=== PATIENT | male | born 1970 | race Caucasian/White ===

== ENCOUNTER 2023-08-21 11:16 | Outpatient (CLI) | payer OTHER | END 2023-08-21 11:17 | disposition critical access hospital (66) | LOC: EMS 11:16 | DX: M79.661 Pain in right lower leg (principal); S89.91XA Unspecified injury of right lower leg, initial encounter; Y93.69 Activity, other involving other sports and athletics played as a team or group; Y92.318 Other athletic court as the place of occurrence of the external cause; R55 Syncope and collapse; I95.9 Hypotension, unspecified | CPT/HCPCS: A0425; A0427 ==

== ENCOUNTER 2023-08-21 11:42 | Emergency (ER) | payer OTHER ==
--- NOTE | 2023-08-21 11:55 | ED Physician Documentation ---
PD HPI SYNCOPE - Stated complaint Stated Complaint: SYNCOPE - History obtained from History obtained from: Patient, EMS - History of Present Illness Witnessed: Witnessed Timing - onset: How many hours ago (1) Duration: Seconds Preceding symptoms: Light headed, Other (severe calf pain. He was playing pickleball and had an abrupt pain in mid calf, worse with putting weight onto leg. He felt abruptly lightheaded and then "fainted" for few seconds as he was about to sit down. No fall nor injury. Remained pale sitting. EMS called and initial BP was low at 80-90 syst.) Associated symptoms: No: Headache, Chest pain, Palpitations Contributing factors: Noxious stimulae. No: Decreased PO intake Injury occurred: No: Fell, Head injury, Neck injury Similar symptoms before: Has not had sx before Review of Systems Constitutional: denies: Fever, Chills GI: reports: Nausea. denies: Vomiting, Diarrhea Neurologic: denies: Focal weakness, Numbness PD PAST MEDICAL HISTORY - Past Medical History Cardiovascular: None Respiratory: None Neuro: None Endocrine/Autoimmune: None - Present Medications Home Medications: Ambulatory Orders Medication Instructions Recorded Confirmed Rosuvastatin Calcium 20 mg PO DAILY 08/21/23 08/21/23 - Allergies Allergies/Adverse Reactions: Allergies Allergy/AdvReac Type Severity Reaction Status Date / Time No Known Drug Allergies Allergy Verified 08/21/23 12:02 PD ED PE NORMAL - Vitals Vital signs reviewed: Yes - General General: Alert and oriented X 3, No acute distress, Well developed/nourished - Neck Neck: Supple, no meningeal sign, No adenopathy - Cardiac Cardiac: RRR, No murmur - Respiratory Respiratory: Clear bilaterally - Abdomen Abdomen: Soft, Non tender - Derm Derm: Normal color, Warm and dry - Extremities Extremities: Other (right calf medial mid- gastroc area with local tenderness and soft area c/w partly torn muscle bundle. Lower calf nd Achilles firm and not tender. Able to plantqrflex the ankle though hurts in calf. ) - Neuro Neuro: Alert and oriented X 3, No motor deficit, No sensory deficit, Normal speech Results - Vitals Vitals: Oxygen O2 Source Room air - EKG (time done) 12:33 EKG releavant findings:: EKG personally interpreted by author of this note. Relevant findings are: Rate: Rate (enter#) (65) Rhythm: NSR [place]: Normal Intervals: Normal VA QRS: Normal Ischemia: Normal ST segments. No: ST elevation c/w ischemia, ST depression - Labs Labs: Laboratory Tests 08/21/23 08/21/23 08/21/23 12:08 12:08 12:08 WBC 4.9 RBC 4.22 L Hgb 13.0 L Hct 38.8 L MCV 91.9 MCH 30.8 MCHC 33.5 RDW 11.3 L Plt Count 173 MPV 10.3 Neut # (Auto) 3.2 Lymph # (Auto) 1.1 L Dillon # (Auto) 0.5 Eos # (Auto) 0.1 Baso # (Auto) 0.0 Absolute Nucleated RBC 0.00 Nucleated RBC % 0.0 Sodium 139 Potassium 4.2 Chloride 107 Carbon Dioxide 25 Anion Gap 7.0 BUN 16 Creatinine 1.1 Estimated GFR (MDRD) 69 L Glucose 123 H Calcium 9.4 Magnesium 1.7 Total Bilirubin 0.7 AST 15 ALT 27 Alkaline Phosphatase 43 Troponin I High Sens 2.3 Total Protein 6.1 L Albumin 4.3 Globulin 1.8 L Albumin/Globulin Ratio 2.4 H Lipase 21 PD Medical Decision Making - ED course Complexity details: reviewed results, considered differential (had abrupt calf pain with partial muscle gastroc tear, and felt lightheaed with brief syncope after. Recovered fully after awhile. Seems very vasovagal. ECG and lytes are normal. Normal Trop. ), d/w patient Departure - Departure Disposition: 01 Home, Self Care Clinical Impression: Transient hypotension Gastrocnemius tear Qualifiers: Encounter type: initial encounter Laterality: right Qualified Code(s): S86.111A - Strain of other muscle(s) and tendon(s) of posterior muscle group at lower leg level, right leg, initial encounter Syncope Qualifiers: Syncope type: vasovagal syncope Qualified Code(s): R55 - Syncope and collapse Condition: Stable Record reviewed to determine appropriate education?: Yes Instructions: Gastrocnemius Muscle Tear, ED Syncope Vasovagal Follow-Up: Orthopedic Care [Provider Group] Comments: Your fainting episode sounds likely related to an inappropriate response of the body called a vasovagal response where there is a transient drop in heart rate and blood pressure in response to a stimulus. Your basic blood count, electrolytes, heart rhythm and EKG are normal. No signs of heart muscle injury based on EKG and a blood test called troponin. It does feel and sound like you have a partial tear of the muscle belly in the calf. The Achilles tendon feels intact. This typically is treated conservatively with an ankle brace to reduce up-and-down motion for the calf muscle initially crutches for nonweightbearing due to the discomfort. Elevate rest and ice the calf area to minimize swelling over the next couple of days. Follow-up with orthopedics in about 1 and half weeks for recheck to evaluate how you are doing. This will likely be about a month and healing. I would suggest some anti-inflammatory such as ibuprofen or naproxen 2-3 [id number] tablets twice to 3 times daily over the next week or so. Add Tylenol every 4-6 hours if needed. Return if you have severe pain into the calf or you develop numbness swelling discoloration or poor movement in through the ankle and foot. Separately in several days or so you may notice some bruising around the ankle which would be just blood from the injured muscle leaching downward with gravity. Discharge Date/Time: 08/21/23 13:41
[2023-08-21 12:13] LABS: BASOPHILS % (AUTO) 0.6 %; EOSINOPHILS # (AUTO) 0.1 10^3/uL (0.0-0.7); EOSINOPHILS % (AUTO) 1.8 %; HCT - HEMATOCRIT 38.8 % (42.0-52.0); LYMPHOCYTES # (AUTO) 1.1 10^3/uL (1.5-3.5); LYMPHOCYTES % (AUTO) 22.7 %; MEAN CORPUSCULAR HEMOGLOBIN 30.8 pg (27.0-31.0); MEAN CORPUSCULAR HGB CONC 33.5 g/dL (32.0-36.0); MEAN CORPUSCULAR VOLUME 91.9 fL (80.0-94.0); MEAN PLATELET VOLUME 10.3 fL (7.4-11.4); MONOCYTES # (AUTO) 0.5 10^3/uL (0.0-1.0); MONOCYTES % (AUTO) 9.2 %; NEUTROPHILS # (AUTO) 3.2 10^3/uL (1.5-6.6); NEUTROPHILS % (AUTO) 65.5 %; PLT - PLATELET COUNT 173 10^3/uL (130-450); RED BLOOD COUNT 4.22 10^6/uL (4.70-6.10); RED CELL DISTRIBUTION WIDTH 11.3 % (12.0-15.0); WHITE BLOOD COUNT 4.9 x10^3/uL (4.8-10.8)
[2023-08-21 12:30] LABS: ALBUMIN 4.3 g/dL (3.2-5.5); ALBUMIN/GLOBULIN RATIO 2.4 (1.0-2.2); BILIRUBIN,TOTAL 0.7 mg/dL (0.2-1.0); CALCIUM 9.4 mg/dL (8.5-10.3); CREATININE 1.1 mg/dL (0.6-1.3); MAGNESIUM 1.7 mg/dL (1.7-2.3); POTASSIUM 4.2 mmol/L (3.5-4.5); TOTAL PROTEIN 6.1 g/dL (6.4-8.9)
[2023-08-21] MEDS: SODIUM CHLORIDE 0.9% 1,000 ML IV STA (12:33)
[2023-08-21] MEDS: KETOROLAC 15 MG/ML VIAL IVP STA (12:33)
[2023-08-21] MEDS: diazePAM INJ 5 MG/ML SYRINGE IVP STA (12:33)
[2023-08-21 13:43] VITALS: BP 111/77; O2SAT 96
== END 2023-08-21 13:41 | disposition home or self-care (01) ==
LOC: ED 11:42
DX: I95.89 Other hypotension (principal); S86.111A Strain of other muscle(s) and tendon(s) of posterior muscle group at lower leg level, right leg, initial encounter; X58.XXXA Exposure to other specified factors, initial encounter; Y93.89 Activity, other specified; R55 Syncope and collapse
CPT/HCPCS: 36415; 80053; 83690; 83735; 84484; 85025; 93005; 96374; 96375; 99283